=== PATIENT | male | born 1955 | race Caucasian/White ===

== ENCOUNTER 2016-08-27 11:33 | Inpatient (IN) | payer MEDICAID ==
--- NOTE | 2016-08-27 11:42 | EDPHY ---
H & P Time Seen by Provider: 08/27/16 11:42 HPI/ROS: CHIEF COMPLAINT: Coughing and short of breath HISTORY OF PRESENT ILLNESS: Long history of asthma and reactive airway disease. Currently tapering on prednisone down to 20 mg. Worsening over the last 3 days with nonproductive cough and worsening shortness of breath and difficulty with exertion. Worse lying flat or with exertion. Shortness of breath not associated with leg swelling but he is concerned that he might have broken a rib with left lateral chest pain today which is really only present on coughing REVIEW OF SYSTEMS: Eye: no change in vision ENT: no sore throat Cardiac: No syncope or palpitations Pulmonary: HPI. No hemoptysis. Abdomen: no vomiting, diarrhea, abdominal pain Musculoskeletal: no back pain Skin: no rash Neuro: no headache Constitutional: no fever : no urinary symptoms A comprehensive 10 point review of systems is otherwise negative aside from elements mentioned in the history of present illness. PAST MEDICAL HISTORY: Reactive airway disease, primary care at [facility]. Currently on 20 mg prednisone a day. Rib fractures and depression. Negative for CAD or PE/DVT Social history: Nonsmoker, homeless General Appearance: Alert and conversant, cooperative. Eyes: No scleral icterus. ENT, Mouth: Normal mucous membranes. Respiratory: Coughing, bilateral wheezing right greater than left, is able to speak in 5-6 word sentences. Cardiovascular: Regular rate and rhythm. Gastrointestinal: Abdomen is soft and non tender. Neurological: Alert and oriented x3. Normally conversant. Face symmetric, normal movement and sensation in all extremities. Skin: Diaphoretic Musculoskeletal: No peripheral edema and no joint swelling. No leg or calf tenderness. Psychiatric: Not agitated. Emergency Department course/MDM: On arrival: DuoNeb, continuous albuterol nebulizer, 60 mg oral prednisone. Chest x-ray viewed independently by myself shows stable left lower lung atelectasis otherwise negative. This was performed as outpatient under separate account. Radiology report reviewed at 1:57 p.m. shows new 8th rib fracture on the left. 1400: Patient informed of rib fracture, still wheezy, oxygen saturation 86%. 2 g magnesium IV, repeat continuous nebulizer. Flu test. 1446: 87% off nebulizer oxygen, still wheezy, plan for admission to hospital. 1554: percocet 1 po for cough. WBC noted elevated but similar to past, on steroids. I think this is not likely related to bacterial pulmonary infection. Smoking Status: Never smoked Constitutional: Initial Vital Signs Temperature (C) 36.6 C 08/27/16 11:36 Heart Rate 115 H 08/27/16 11:36 Respiratory Rate 16 08/27/16 11:36 Blood Pressure 165/100 H 08/27/16 11:36 O2 Sat (%) 91 L 08/27/16 11:36 O2 Delivery Mode Room Air Allergies/Adverse Reactions: erythromycin base Allergy (Verified 08/12/16 07:48) UPSET STOMACH Home Medications: Medication Instructions Recorded Albuterol [Proventil Inhaler HFA 2 puffs IH DAILY PRN 08/17/16 (*)] Albuterol [Proventil Neb] 3 ml IH QID PRN 08/17/16 Tiotropium Inhaler [Spiriva 18 mcg IH DAILY 08/17/16 Handihaler] buPROPion XL [Wellbutrin Xl] 300 mg PO DAILY 08/17/16 guaiFENesin/CODEINE PHOS 5 ml PO Q6 PRN #100 udcup 08/17/16 [Robitussin AC] Beclomethasone Qvar 80 [Qvar 80 1 puffs IH BIDI 08/27/16 (*)] Cetirizine [ZyrTEC 10 mg (*)] 10 mg PO DAILY 08/27/16 Citalopram Hydrobromide [Celexa] 40 mg PO DAILY 08/27/16 Gabapentin [Neurontin 300 MG (*)] 300 mg PO TID 08/27/16 Ipratropium [Atrovent Neb (*)] 0.5 mg IH Q8 PRN 08/27/16 Mometasone/Formoterol [Dulera 200 1 puffs IH BID 08/27/16 Mcg/5 Mcg Inhaler] Ranitidine HCl [Zantac] 300 mg PO BID 08/27/16 guaiFENesin [Mucinex 600 MG (*)] 600 mg PO BID 08/27/16 Medical Decision Making - Diagnostics Imaging: X-ray done as outpatient today reviewed by myself Differential Diagnosis: Differential diagnosis considered for shortness of breath including but not limited to pulmonary infectious process, COPD, asthma, pulmonary embolus and congestive heart failure. Consult/Admit Bed Type: [place] [id number] - Data Points Laboratory Results: Laboratory Results 08/27/16 11:55 08/27/16 11:55 08/27/16 08/27/16 11:55 11:47 WBC 16.03 H 10^3/uL (3.80-9.50) RBC 5.67 10^6/uL (4.40-6.38) Hgb 14.6 g/dL (13.7-17.5) Hct 45.4 % (40.0-51.0) MCV 80.1 L fL (81.5-99.8) MCH 25.7 L pg (27.9-34.1) MCHC 32.2 L g/dL (32.4-36.7) RDW 15.9 H % (11.5-15.2) Plt Count 271 10^3/uL (150-400) MPV 9.4 fL (8.7-11.7) Neut % (Auto) 77.0 H % (39.3-74.2) Lymph % (Auto) 12.4 L % (15.0-45.0) [place] % (Auto) 8.6 % (4.5-13.0) Eos % (Auto) 0.9 % (0.6-7.6) Baso % (Auto) 0.4 % (0.3-1.7) Nucleat RBC Rel Count 0.0 % (0.0-0.2) Absolute Neuts (auto) 12.33 H 10^3/uL (1.70-6.50) Absolute Lymphs (auto) 1.99 10^3/uL (1.00-3.00) Absolute Monos (auto) 1.38 H 10^3/uL (0.30-0.80) Absolute Eos (auto) 0.15 10^3/uL (0.03-0.40) Absolute Basos (auto) 0.06 10^3/uL (0.02-0.10) Absolute Nucleated RBC 0.00 10^3/uL (0-0.01) Immature Gran % 0.7 % (0.0-1.1) Immature Gran # 0.12 H 10^3/uL (0.00-0.10) Sodium 143 mEq/L (134-144) Potassium 4.4 mEq/L (3.5-5.2) Chloride 109 mEq/L (97-110) Carbon Dioxide 24 mEq/l (22-31) Anion Gap 10 mEq/L (8-16) BUN 16 mg/dL (7-23) Creatinine 1.0 mg/dL (0.7-1.3) Estimated GFR > 60 Glucose 99 mg/dL (70-100) Calcium 9.2 mg/dL (8.5-10.4) Influenza Typ A,B (DFA) NEGATIVE FOR FLU (NEGATIVE) Medications Given: Discontinued Medications Albuterol (Proventil Neb) 3 ml IH EDNOW ONE Stop: 08/27/16 11:44 Last Admin: 08/27/16 11:55 Dose: 3 ml Albuterol (Proventil Neb) 15 ml IH EDNOW ONE Stop: 08/27/16 12:08 Last Admin: 08/27/16 13:00 Dose: 15 ml Albuterol (Proventil Neb) 15 ml IH EDNOW ONE Stop: 08/27/16 14:00 Last Admin: 08/27/16 14:53 Dose: 15 ml Albuterol/Ipratropium (Duoneb) 3 ml IH EDNOW ONE Stop: 08/27/16 11:44 Last Admin: 08/27/16 11:56 Dose: 3 ml Magnesium Sulfate (Magnesium Sulf 2 Gm (Premix)) 50 mls @ 50 mls/hr IV EDNOW ONE Stop: 08/27/16 14:58 Last Admin: 08/27/16 15:33 Dose: 50 mls Sodium Chloride (Ns) 1,000 mls @ 0 mls/hr IV ONCE ONE PRN Reason: Wide Open Stop: 08/27/16 14:25 Last Admin: 08/27/16 15:33 Dose: 1,000 mls Oxycodone/Acetaminophen (Percocet 5/325) 1 tab PO EDNOW ONE Stop: 08/27/16 14:54 Last Admin: 08/27/16 15:19 Dose: 1 tab Prednisone (Prednisone) 60 mg PO EDNOW ONE Stop: 08/27/16 11:44 Last Admin: 08/27/16 11:55 Dose: 60 mg Departure - Departure Disposition: [facility] Acute Clinical Impression: Exacerbation of asthma Condition: Good
[2016-08-27] MEDS ORDERED: ALBUTEROL 3 ML DEYVIAL IH ONE ×3 (11:43→13:59)
[2016-08-27] MEDS ORDERED: predniSONE 20 MG TAB PO ONE (11:43)
[2016-08-27] MEDS ORDERED: IPRATROPIUM/ALBUTEROL 3 ML DEYVIAL IH ONE (11:43)
[2016-08-27] MEDS ORDERED: MAGNESIUM SULF 2 GM/WATER 50 ML IV ONE (13:59)
[2016-08-27] MEDS ORDERED: NS 1,000 ML IV ONE (14:24)
[2016-08-27] MEDS ORDERED: OXYCODONE/APAP 5/325 TAB PO ONE (14:53)
[2016-08-27 14:56] LABS: % IMMATURE GRANULYOCYTES 0.7 % (0.0-1.1); ABSOLUTE IMMATURE GRANULOCYTES 0.12 10^3/uL (0.00-0.10); ADD DIFF? NO; ADD MORPH? NO; ADD SCAN? NO; ATYPICAL LYMPHOCYTE FLAG 0 (0-99); FRAGMENT RBC FLAG 0 (0-99); HEMATOCRIT 45.4 % (40.0-51.0); HEMOGLOBIN 14.6 g/dL (13.7-17.5); LEFT SHIFT FLG 10 (0-99); LIPEMIA HEMOLYSIS FLAG 80 (0-99); MEAN CELL HEMOGLOBIN 25.7 pg (27.9-34.1); MEAN CELL HEMOGLOBIN CONCENTR. 32.2 g/dL (32.4-36.7); MEAN CELL VOLUME 80.1 fL (81.5-99.8); MEAN PLATELET VOLUME 9.4 fL (8.7-11.7); PLATELET CLUMPS FLAG 0 (0-99); PLATELET COUNT 271 10^3/uL (150-400); RED BLOOD CELL COUNT 5.67 10^6/uL (4.40-6.38); RED CELL DISTRIBUTION WIDTH 15.9 % (11.5-15.2)
[2016-08-27 15:13] LABS: ANION GAP 10 mEq/L (8-16); CALCIUM 9.2 mg/dL (8.5-10.4); CARBON DIOXIDE 24 mEq/l (22-31); CHLORIDE 109 mEq/L (97-110); GLOMERULAR FILTRATION RATE > 60; GLUCOSE 99 mg/dL (70-100); POTASSIUM 4.4 mEq/L (3.5-5.2); SODIUM 143 mEq/L (134-144)
[2016-08-27] MEDS ORDERED: ONDANSETRON DISINTEGRATING 4 MG TAB PO PRN (17:08)
[2016-08-27] MEDS ORDERED: ACETAMINOPHEN 325 MG TAB PO PRN (17:08)
[2016-08-27] MEDS ORDERED: ONDANSETRON 4 MG/2 ML VIAL IVP PRN (17:08)
[2016-08-27] MEDS: BECLOMETHASONE QVAR 80 MDI IH SCH ×2 (17:30→19:46)
[2016-08-27] MEDS: Mometasone/Formoterol [Dulera 200 Mcg/5 Mcg Inhaler] 1 PUFFS IH SCH (19:45)
--- NOTE | 2016-08-27 20:51 | GHP ---
[f rep st] HISTORY AND PHYSICAL DATE OF ADMISSION: 08/27/2016 CHIEF COMPLAINT: Shortness of breath. HISTORY OF PRESENT ILLNESS: This is a 60-year-old male who has been admitted twice in the last month for asthma exacerbation which seems to be more exacerbation of his underlying tracheomalacia. He do es go to [place] for that and there was a plan for some stenting, but no definitive date. This moody s always been complicated by the fact that he is homeless. He was last discharged on 08/15. At that point, he was given prednisone and Augmentin. He has had chest x-rays that have suggested left lower lobe infiltrate versus scarring. He states that since discharge he has been slowly getting worse. He says that this might be correlat ed with a decrease in the prednisone dose. He does feel a lot better while he is on prednisone. He feels like he is coughing, wheezing, and is unable to sleep. He is bringing up some yellow sputum. No fevers or chills. He has developed some left chest pain and he has been diagnosed with a new left 8th rib fracture. REVIEW OF SYSTEMS: A 10-point review of systems is a stated above and is otherwise negative. PAST MEDICAL HISTORY: 1. Tracheomalacia and tracheal stenosis, as above. 2. Asthma. 3. Depression. MEDICATIONS: Reviewed. SOCIAL HISTORY: No smoking. He is homeless and resides at a [facility]. FAMILY HISTORY: Positive for asthma. PHYSICAL EXAM: VITAL SIGNS: Afebrile. Blood pressure is 129/90, heart rate 110, oxygen saturation is 93% on room air. GENERAL: The patient is well-developed, in no apparent distress. HEENT: Nonic teric sclerae. Extraocular movements intact. Moist mucous membranes. NECK: Supple. No thyromegal y. LUNGS: Good effort. Coarse expiratory wheezes bilaterally. CARDIOVASCULAR: Regular rate and r hythm. No murmurs, gallops. ABDOMEN: Positive bowel sounds. Soft, nontender, nondistended. No he patosplenomegaly. EXTREMITIES: No clubbing, cyanosis, or edema. SKIN: Without rash. Warm, dry, i ntact. NEUROLOGIC: Alert and oriented x3. Moving all 4 extremities equally. PSYCH: Normal mood a nd affect. LABS: White count is elevated at 16, hemoglobin 14, platelets are 271. D-dimer is negative. Chemis tries normal. Flu is negative. Chest x-ray shows some scarring versus atelectasis left lower lobe and the new 8th rib fracture and s ome old rib fractures. ASSESSMENT: This is a 60-year-old male with a history of asthma and tracheomalacia and tracheal sten osis, presenting with worsening shortness of breath as his steroids have been tapered. PLAN: Asthma exacerbation/tracheal stenosis. We have restarted steroids at 60 mg daily. Will also continue nebulizer treatments. I do not think there is a lot of evidence that he may have worsening pneumonia and I am going hold off antibiotics. His white blood cell count is elevated, but this coul d be due to steroids. It is actually about the same as it was when he was discharged. Obviously, th e definitive treatment would be some type of procedure to help with his tracheomalacia and tracheal s tenosis. He will probably be discharged on higher-dose steroids until he is able to follow up. /[id number]/MODL
[2016-08-27] MEDS: guaiFENesin 600 MG TAB.ER PO SCH (21:21)
[2016-08-27] MEDS: GABAPENTIN 300 MG CAP PO SCH (21:21)
[2016-08-27] MEDS: FAMOTIDINE 20 MG TAB PO SCH (21:21)
[2016-08-27] MEDS: ALBUTEROL 3 ML DEYVIAL IH SCH (22:00)
[2016-08-28] MEDS: BECLOMETHASONE QVAR 80 MDI IH SCH ×2 (05:20→16:33)
[2016-08-28] MEDS: Mometasone/Formoterol [Dulera 200 Mcg/5 Mcg Inhaler] 1 PUFFS IH SCH ×2 (05:22→09:58)
[2016-08-28 05:31] LABS: % IMMATURE GRANULYOCYTES 0.9 % (0.0-1.1); ABSOLUTE IMMATURE GRANULOCYTES 0.14 10^3/uL (0.00-0.10); ADD DIFF? NO; ADD MORPH? NO; ADD SCAN? NO; ATYPICAL LYMPHOCYTE FLAG 0 (0-99); FRAGMENT RBC FLAG 0 (0-99); HEMATOCRIT 43.8 % (40.0-51.0); LEFT SHIFT FLG 10 (0-99); LIPEMIA HEMOLYSIS FLAG 80 (0-99); MEAN CELL HEMOGLOBIN 25.5 pg (27.9-34.1); MEAN CELL VOLUME 79.9 fL (81.5-99.8); MEAN PLATELET VOLUME 8.8 fL (8.7-11.7); PLATELET CLUMPS FLAG 0 (0-99); PLATELET COUNT 265 10^3/uL (150-400); RED BLOOD CELL COUNT 5.48 10^6/uL (4.40-6.38); RED CELL DISTRIBUTION WIDTH 15.9 % (11.5-15.2)
[2016-08-28] MEDS: ALBUTEROL 3 ML DEYVIAL IH SCH ×3 (05:50→19:08)
[2016-08-28 05:54] LABS: ALANINE AMINOTRANSFERASE 39 IU/L (21-72); ALBUMIN 3.8 g/dL (3.5-5.0); ALKALINE PHOSPHATASE 77 IU/L (38-126); ANION GAP 8 mEq/L (8-16); ASPARTATE AMINOTRANSFERASE 22 IU/L (17-59); BILIRUBIN,TOTAL 0.5 mg/dL (0.1-1.4); CALCIUM 8.7 mg/dL (8.5-10.4); CARBON DIOXIDE 28 mEq/l (22-31); CHLORIDE 107 mEq/L (97-110); CREATININE 0.8 mg/dL (0.7-1.3); GLOMERULAR FILTRATION RATE > 60; GLUCOSE 101 mg/dL (70-100); POTASSIUM 4.1 mEq/L (3.5-5.2); SODIUM 143 mEq/L (134-144); TOTAL PROTEIN 6.5 g/dL (6.3-8.2)
[2016-08-28] MEDS ORDERED: TIOTROPIUM INHALER 18 MCG/DOSE 5 DOSE/MDI IH SCH (09:00)
[2016-08-28] MEDS: GABAPENTIN 300 MG CAP PO SCH ×3 (09:45→21:15)
[2016-08-28] MEDS: ENOXAPARIN 40 MG/0.4 ML SYR SC SCH (09:45)
[2016-08-28] MEDS: CETIRIZINE 10 MG TAB PO SCH (09:46)
[2016-08-28] MEDS: CITALOPRAM 20 MG TAB PO SCH (09:46)
[2016-08-28] MEDS: predniSONE 20 MG TAB PO SCH (09:46)
[2016-08-28] MEDS: FAMOTIDINE 20 MG TAB PO SCH ×2 (09:46→21:15)
[2016-08-28] MEDS: buPROPion XL 150 MG TAB PO SCH (09:46)
[2016-08-28] MEDS: guaiFENesin 600 MG TAB.ER PO SCH ×2 (09:46→21:15)
--- NOTE | 2016-08-28 10:20 | HOSPPROG ---
Hospitalist Progress Note Assessment/Plan: ASSESSMENT/PLAN: # acute on chronic hypoxic respiratory failure - severe underlying lung disease (RAD/tracheomalacia) with acute rib fracture - will hold antibiotics for now # reactive airway disease exacerbation - increased dose of prednisone, cont nebulizers - Dulera, Spiriva as outpt # tracheomalacia/stenosis - needs definitive procedure at [facility] # new left 8th rib fracture - pain control - IS, flutter valve # leukocytosis # lovenox # full code SUBJECTIVE: Feels somewhat better today overall OBJECTIVE: Vitals reviewed Comfortable, no acute distress Regular rate and rhythm, no murmurs rubs or gallops No respiratory distress, lungs clear to auscultation bilaterally; no wheezes rales or rhonchi Abdomen with normal bowel sounds, soft, nontender, nondistended LABORATORY DATA: Elevated white blood cell count IMAGING: Chest x-ray personally reviewed, new left-sided rib fracture otherwise no significant changes MICROBIOLOGY: None Objective: Vital Signs Temp Pulse Resp BP Pulse Ox 36.7 C 102 H 18 148/83 H 92 08/28/16 07:27 08/28/16 07:27 08/28/16 07:27 08/28/16 07:27 08/28/16 07:27 Laboratory Results 08/28/16 05:08 08/28/16 05:08 08/27/16 08/28/16 08/29/16 05:59 05:59 05:59 Intake Total 2640 Output Total 150 Balance 2490 ICD10 Worksheet Patient Problems: Problems Problem Status Diagnosed Chronic obstructive pulmonary disease with acute exacerbation Acute Exacerbation of asthma Acute
[2016-08-28] MEDS: OXYCODONE/APAP 5/325 TAB PO PRN ×2 (10:32→21:20)
[2016-08-28] MEDS: IPRATROPIUM/ALBUTEROL 3 ML DEYVIAL IH SCH ×3 (11:11→22:32)
[2016-08-28] MEDS: guaiFENesin/CODEINE PHOS 10 ML UDCUP PO PRN (23:58)
[2016-08-29] MEDS: ALBUTEROL 3 ML DEYVIAL IH PRN (01:31)
[2016-08-29] MEDS: IPRATROPIUM/ALBUTEROL 3 ML DEYVIAL IH SCH ×4 (05:45→19:31)
[2016-08-29] MEDS: BECLOMETHASONE QVAR 80 MDI IH SCH ×2 (05:48→19:33)
[2016-08-29] MEDS: OXYCODONE/APAP 5/325 TAB PO PRN ×2 (09:33→21:25)
[2016-08-29] MEDS: ENOXAPARIN 40 MG/0.4 ML SYR SC SCH (10:31)
[2016-08-29] MEDS: predniSONE 20 MG TAB PO SCH (10:34)
[2016-08-29] MEDS: GABAPENTIN 300 MG CAP PO SCH ×3 (10:34→21:24)
[2016-08-29] MEDS: buPROPion XL 150 MG TAB PO SCH (10:35)
[2016-08-29] MEDS: FAMOTIDINE 20 MG TAB PO SCH ×2 (10:35→21:24)
[2016-08-29] MEDS: CETIRIZINE 10 MG TAB PO SCH (10:36)
[2016-08-29] MEDS: guaiFENesin 600 MG TAB.ER PO SCH ×2 (10:36→21:24)
[2016-08-29] MEDS: CITALOPRAM 20 MG TAB PO SCH (10:36)
--- NOTE | 2016-08-29 13:35 | HOSPPROG ---
Hospitalist Progress Note Assessment/Plan: ASSESSMENT/PLAN: # acute on chronic hypoxic respiratory failure - severe underlying lung disease (RAD/tracheomalacia) with acute rib fracture - will hold antibiotics for now - approaching baseline but not the area at # reactive airway disease exacerbation - increased dose of prednisone, cont nebulizers - Dulera, Spiriva as outpt # tracheomalacia/stenosis - needs definitive stenting procedure at [facility] # new left 8th rib fracture - pain control - IS, flutter valve # leukocytosis # lovenox # full code # mod risk SUBJECTIVE: slightly worse than yesterday OBJECTIVE: Vitals reviewed Comfortable, no acute distress Regular rate and rhythm, no murmurs rubs or gallops mild respiratory distress, lungs clear to auscultation bilaterally; no wheezes rales or rhonchi Abdomen with normal bowel sounds, soft, nontender, nondistended LABORATORY DATA: none new today IMAGING: no new MICROBIOLOGY: None Objective: Vital Signs Temp Pulse Resp BP Pulse Ox 36.8 C 100 16 131/90 H 94 08/29/16 11:09 08/29/16 11:09 08/29/16 11:09 08/29/16 11:09 08/29/16 11:09 Laboratory Results 08/28/16 05:08 08/28/16 05:08 08/28/16 08/29/16 08/30/16 05:59 05:59 05:59 Intake Total 2640 Output Total 150 Balance 2490 ICD10 Worksheet Patient Problems: Problems Problem Status Diagnosed Chronic obstructive pulmonary disease with acute exacerbation Acute Exacerbation of asthma Acute
[2016-08-29] MEDS: guaiFENesin/CODEINE PHOS 10 ML UDCUP PO PRN (21:24)
[2016-08-30] MEDS: IPRATROPIUM/ALBUTEROL 3 ML DEYVIAL IH SCH ×4 (05:21→21:15)
[2016-08-30] MEDS: BECLOMETHASONE QVAR 80 MDI IH SCH ×2 (05:30→18:01)
[2016-08-30] MEDS: predniSONE 20 MG TAB PO SCH (10:34)
[2016-08-30] MEDS: FAMOTIDINE 20 MG TAB PO SCH ×2 (10:34→20:42)
[2016-08-30] MEDS: CETIRIZINE 10 MG TAB PO SCH (10:34)
[2016-08-30] MEDS: buPROPion XL 150 MG TAB PO SCH (10:35)
[2016-08-30] MEDS: GABAPENTIN 300 MG CAP PO SCH ×3 (10:35→20:42)
[2016-08-30] MEDS: CITALOPRAM 20 MG TAB PO SCH (10:35)
[2016-08-30] MEDS: ENOXAPARIN 40 MG/0.4 ML SYR SC SCH (10:36)
[2016-08-30] MEDS: guaiFENesin 600 MG TAB.ER PO SCH ×2 (10:36→20:42)
--- NOTE | 2016-08-30 12:14 | HOSPPROG ---
Hospitalist Progress Note Assessment/Plan: ASSESSMENT/PLAN: # acute on chronic hypoxic respiratory failure - severe underlying lung disease (RAD/tracheomalacia) with acute rib fracture - cont to hold antibiotics - approaching baseline but not the area at # LE edema - suspect pulm htn - lasix IV, check echo # reactive airway disease exacerbation - increased dose of prednisone, cont nebulizers - Dulera, Spiriva as outpt # tracheomalacia/stenosis - needs definitive stenting procedure at [facility] # new left 8th rib fracture - pain control - IS, flutter valve # leukocytosis # lovenox # full code # mod risk SUBJECTIVE: ankles are today swollen today; breathing still feels labored OBJECTIVE: Vitals reviewed Comfortable, no acute distress Regular rate and rhythm, no murmurs rubs or gallops mild respiratory distress, lungs clear to auscultation bilaterally; no wheezes rales or rhonchi Abdomen with normal bowel sounds, soft, nontender, nondistended 2+ bilat LE edema LABORATORY DATA: none new today Objective: Vital Signs Temp Pulse Resp BP Pulse Ox 37.0 C 92 16 142/87 H 90 L 08/30/16 08:00 08/30/16 08:00 08/30/16 08:00 08/30/16 08:00 08/30/16 08:00 Laboratory Results 08/28/16 05:08 08/28/16 05:08 08/29/16 08/30/16 08/31/16 05:59 05:59 05:59 Intake Total 1500 1200 Balance 1500 1200 ICD10 Worksheet Patient Problems: Problems Problem Status Diagnosed Chronic obstructive pulmonary disease with acute exacerbation Acute Exacerbation of asthma Acute
[2016-08-30] MEDS: OXYCODONE/APAP 5/325 TAB PO PRN ×2 (12:23→20:42)
[2016-08-30] MEDS: guaiFENesin/CODEINE PHOS 10 ML UDCUP PO PRN ×2 (14:30→20:42)
[2016-08-30] MEDS: FUROSEMIDE 20 MG/2 ML VIAL IVP SCH ×2 (14:31→17:05)
[2016-08-30] MEDS: ALBUTEROL 3 ML DEYVIAL IH PRN (14:40)
--- NOTE | 2016-08-30 15:41 | ECHO ---
[id number] + + [address] : : [place] [address] : : [phone] + + Adult Echocardiographic Report + -+ :Name: DAWSON MITTAL HStudy Date: 08/30/2016 01:55 PM : : Hospital Admission Number: [id number] : :: 1955 Gender: Male Height: 63 in : :Age: 60 yrs Race: WH Weight: 191 lb : :Reason For Study: LE edema : : BSA: 1.9 meters 2: :History: LE edema : + -+ MMode/2D Measurements & Calculations IVSd: 1.0 cm RVDd: 3.2 cm FS: 28.4 % Ao root diam: 3.0 cm LVPWd: 0.98 cm LVIDd: 5.0 cm EDV(Teich): 116.8 ml LVIDs: 3.6 cm ESV(Teich): 53.0 ml EF(Teich): 54.6 % Normal Measurement Values: + + :LVIDd (3.5-5.7cm) IVSd (0.6-1.1cm) LVPWd (0.6-1.1cm) Aortic Root (2.0-3.7cm)Left Atrium (1.5-4.0cm): :LV Vol(d) (76-115ml) LV Vol(s) (29-48ml) Ejec Fraction (50-65%)PV Lobo (0.6- 1.2m/s) TV Lobo (0.4-1.0m/s) : :MV E Lobo (0.8-1.0m/s)MV A Lobo (0.3-1.0m/s)LVOT Lobo (0.7-1.2m/s) Asc Ao Lobo ( 0.9-1.8m/s) : + + Doppler Measurements & Calculations MV E max lobo: Ao V2 max: LV V1 max: PA V2 max: 77.0 cm/sec 133.8 cm/sec 94.8 cm/sec 107.2 cm/sec MV A max lobo: Ao max P.2 mmHgLV V1 max PG: PA max P.6 mmHg 53.8 cm/sec 3.6 mmHg MV E/A: 1.4 MV dec time: 0.11 sec Left Ventricle The left ventricle is normal in size and function. There is normal left ventricular wall thickness. Ejection Fraction = 55-60%. Diastolic function is normal. E/e' 7.8. Regional wall motion abnormalities cannot be excluded due to limited visualization. Right Ventricle The right ventricle is normal in size and function. Atria The left atrial size is normal. Right atrial size is normal. The interatrial septum is intact with no evidence for an atrial septal defect. Mitral Valve The mitral valve is normal in structure and function. There is no evidence of mitral valve prolapse. There is no mitral valve stenosis. There is no mitral regurgitation noted. Tricuspid Valve The tricuspid valve is normal in structure and function. There is no tricuspid stenosis. No tricuspid regurgitation. Aortic Valve Most likely trileaflet aortic valve however not well visualized. There is no aortic stenosis. There is no aortic insufficiency. Pulmonic Valve The pulmonic valve is not well visualized. Great Vessels The aortic root is normal size. Pericardium/Pleural There is no pericardial effusion. Conclusion A two-dimensional transthoracic echocardiogram with M-mode and Doppler was performed. The study was technically difficult. The left ventricle is normal in size and function. Ejection Fraction = 55-60%. Most likely trileaflet aortic valve however not well visualized. Diastolic function is normal. E/e' 7.8 The right ventricle is normal in size and function. The left atrial size is normal. Right atrial size is normal. The interatrial septum is intact with no evidence for an atrial septal defect. The mitral valve is normal in structure and function. Final Reading Physician: Donovan Lucas electronically signed on 08/30/2016 03:40 PM Ordering Physician: Donte Kirkpatrick Performed By: Silvina Pickens
[2016-08-31] MEDS: IPRATROPIUM/ALBUTEROL 3 ML DEYVIAL IH SCH ×2 (05:05→13:12)
[2016-08-31] MEDS: BECLOMETHASONE QVAR 80 MDI IH SCH (05:06)
[2016-08-31 06:22] LABS: ANION GAP 10 mEq/L (8-16); CARBON DIOXIDE 28 mEq/l (22-31); CHLORIDE 107 mEq/L (97-110); CREATININE 0.9 mg/dL (0.7-1.3); GLOMERULAR FILTRATION RATE > 60; GLUCOSE 107 mg/dL (70-100); POTASSIUM 3.6 mEq/L (3.5-5.2); SODIUM 145 mEq/L (134-144)
[2016-08-31] MEDS: ALBUTEROL 3 ML DEYVIAL IH PRN (08:42)
[2016-08-31] MEDS: CETIRIZINE 10 MG TAB PO SCH (09:48)
[2016-08-31] MEDS: FAMOTIDINE 20 MG TAB PO SCH (09:49)
[2016-08-31] MEDS: GABAPENTIN 300 MG CAP PO SCH (09:49)
[2016-08-31] MEDS: buPROPion XL 150 MG TAB PO SCH (09:49)
[2016-08-31] MEDS: CITALOPRAM 20 MG TAB PO SCH (09:49)
[2016-08-31] MEDS: predniSONE 20 MG TAB PO SCH (09:49)
[2016-08-31] MEDS: guaiFENesin 600 MG TAB.ER PO SCH (09:49)
[2016-08-31] MEDS: ENOXAPARIN 40 MG/0.4 ML SYR SC SCH (09:50)
[2016-08-31] MEDS: OXYCODONE/APAP 5/325 TAB PO PRN (10:26)
[2016-08-31] MEDS: FUROSEMIDE 20 MG/2 ML VIAL IVP SCH (10:26)
[2016-08-31 12:06] VITALS: BP 139/98; RESP 16; TEMP 97.8
--- NOTE | 2016-08-31 12:36 | GDS ---
[f rep st] DISCHARGE SUMMARY ALL DIAGNOSES: 1. Acute on chronic respiratory failure. 2. History of tracheomalacia and stenosis. 3. Lower extremity edema. 4. Reactive airways disease exacerbation. 5. Acute 8th rib fracture, left-sided. HOSPITAL COURSE: A 60-year-old man with known tracheomalacia and stenosis, presented with shortness of breath. He was recently admitted here for the same. He was diagnosed with prednisone. When he w as decreasing his prednisone dose, his symptoms became worse. He was started on 60 mg of prednisone. He was also given inhalers. Respiratory status has improved. He was noted to have a left-sided rib fracture. This is an 8th rib fracture. Been treated with pain control for this. He is still able to cough and clear his secretions. Will discharge him with a ort course of pain control for this. I have given him a long taper of prednisone starting at 60 mg daily. He has a prescription for this. He complained of some lower extremity edema. Echocardiogram is relatively normal, actually without p ulmonary hypertension. Diuresed with IV Lasix, transition to oral Lasix for now. For his tracheal stenosis and tracheomalacia, he has close followup with [facility]. They plan to stent him however, the exact timing of this is unclear. I wrote him a note to excuse him from duties while he is at his [facility] [place] [facility] for approximately 2 weeks. BILLING: I spent more than 30 minutes on the day of discharge coordinating care. /[id number]/MODL
[2016-08-31 13:20] VITALS: PULSE 90; O2SAT 91
== END 2016-08-31 14:21 | disposition home or self-care (01) | DRG 202 ==
LOC: F3E 15:43
PROVIDERS: ADMIT Internal Medicine; ATTEND Student in an Organized Health Care Education/Training Program
DX: J45.901 Unspecified asthma with (acute) exacerbation (principal); J96.21 Acute and chronic respiratory failure with hypoxia; J39.8 Other specified diseases of upper respiratory tract; S22.32XA Fracture of one rib, left side, initial encounter for closed fracture; R60.9 Edema, unspecified; X50.9XXA Other and unspecified overexertion or strenuous movements or postures, initial encounter; Z59.0 Homelessness
CPT/HCPCS: 96365; J1650

== ENCOUNTER → 2016-08-27 | Outpatient (CLI) | payer MEDICAID ==
--- NOTE | 2016-08-27 13:02 | DX ---
PA and Lateral Chest August 27, 2016 Indication: Cough for one year. Comparison: Two-view chest dated August 12, 2016 Findings: A new nondisplaced low left 8th rib fracture is evident on the PA view. Hypoventilation, di ffuse moderate peribronchial thickening, left basilar atelectasis versus scarring, and an old healed deformed left lateral 6, 7 and 8th rib fractures are unchanged since August 12, 2016. Impression: 1. New nondisplaced left 8th rib fracture. 2. Left basilar atelectasis versus scarring with associated old deformed low left rib fractures are u nchanged. 3. No new edema, consolidation or mass.
== END ==
LOC: FIMAGING 10:52
PROVIDERS: ATTEND Radiology Diagnostic Radiology
DX: S22.32XA Fracture of one rib, left side, initial encounter for closed fracture (principal); R05 Cough

== ENCOUNTER 2016-09-02 06:41 | Inpatient (IN) | payer MEDICAID ==
[2016-09-02] MEDS ORDERED: IPRATROPIUM/ALBUTEROL 3 ML DEYVIAL IH ONE (07:11)
--- NOTE | 2016-09-02 07:20 | CPEKG ---
Heart Rate: 84 RR Interval: 714 P-R Interval: 168 QRSD Interval: 90 QT Interval: 372 QTC Interval: 440 P [place]: 47 QRS [place]: 6 T Wave [place]: 22 EKG Severity - NORMAL ECG - EKG Impression: SINUS RHYTHM Electronically Signed By: Carol Arnold 02-Sep-2016 07:51:51
[2016-09-02 07:33] LABS: % IMMATURE GRANULYOCYTES 0.8 % (0.0-1.1); ABSOLUTE IMMATURE GRANULOCYTES 0.13 10^3/uL (0.00-0.10); ADD DIFF? NO; ADD MORPH? NO; ADD SCAN? NO; ATYPICAL LYMPHOCYTE FLAG 0 (0-99); FRAGMENT RBC FLAG 0 (0-99); HEMATOCRIT 39.2 % (40.0-51.0); HEMOGLOBIN 12.8 g/dL (13.7-17.5); LEFT SHIFT FLG 10 (0-99); LIPEMIA HEMOLYSIS FLAG 80 (0-99); MEAN CELL HEMOGLOBIN CONCENTR. 32.7 g/dL (32.4-36.7); MEAN CELL VOLUME 79.7 fL (81.5-99.8); MEAN PLATELET VOLUME 8.9 fL (8.7-11.7); PLATELET CLUMPS FLAG 0 (0-99); PLATELET COUNT 244 10^3/uL (150-400); RED BLOOD CELL COUNT 4.92 10^6/uL (4.40-6.38); RED CELL DISTRIBUTION WIDTH 15.6 % (11.5-15.2)
[2016-09-02 07:47] LABS: ANION GAP 8 mEq/L (8-16); CALCIUM 8.7 mg/dL (8.5-10.4); CARBON DIOXIDE 27 mEq/l (22-31); CHLORIDE 108 mEq/L (97-110); CREATININE 0.9 mg/dL (0.7-1.3); GLOMERULAR FILTRATION RATE > 60; GLUCOSE 74 mg/dL (70-100); POTASSIUM 3.7 mEq/L (3.5-5.2); SODIUM 143 mEq/L (134-144)
[2016-09-02] MEDS ORDERED: ALBUTEROL 3 ML DEYVIAL IH ONE (08:50)
[2016-09-02] MEDS ORDERED: predniSONE 20 MG TAB PO ONE (08:50)
--- NOTE | 2016-09-02 09:06 | DX ---
AP Upright and Lateral Chest History: Shortness of breath and chronic cough in a 60-year-old male; comparison prior studies 2016 and August 12, 2016. Findings: There is a slight increase in displacement of the subacute left 8th rib fracture. Other hea led left rib fractures are stable in appearance. Hypoventilatory changes are noted. There is mild inc rease in left basilar opacity which is probably progressive atelectasis. There is also peribronchial thickening and mild hyperexpansion suggesting COPD/chronic bronchitis. The heart size and pulmonary vascularity are normal. No pleural effusions are seen. Impression: 1. Increased left basilar atelectasis. 2. Airways disease probably representing COPD/chronic bronchitis. 3. Slight increase in displacement of the left 8th rib fracture.
[2016-09-02] MEDS ORDERED: LETS SOLN TOPICAL 1 EA SYR TP ONE (09:37)
[2016-09-02] MEDS ORDERED: ACETAMINOPHEN 325 MG TAB PO PRN (11:06)
[2016-09-02] MEDS ORDERED: ZOLPIDEM TARTRATE 5 MG TAB PO PRN (11:06)
[2016-09-02] MEDS ORDERED: ONDANSETRON 4 MG/2 ML VIAL IVP PRN (11:06)
[2016-09-02] MEDS ORDERED: PROMETHAZINE HCL 25 MG/ML VIAL IVP PRN (11:06)
[2016-09-02] MEDS ORDERED: ONDANSETRON DISINTEGRATING 4 MG TAB PO PRN (11:06)
[2016-09-02] MEDS ORDERED: oxyCODONE IR 5 MG TAB PO PRN (11:06)
[2016-09-02] MEDS ORDERED: ALBUTEROL 60 PUFFS/8 GM MDI IH PRN (11:09)
[2016-09-02] MEDS: methylPREDNISolone SOD SUCC 125 MG/2 ML VIAL IVP SCH ×2 (12:15→17:28)
[2016-09-02] MEDS: IPRATROPIUM/ALBUTEROL 3 ML DEYVIAL IH SCH ×3 (12:30→21:10)
[2016-09-02] MEDS: ACETYLCYSTEINE 10% 30 ML VIAL IH SCH ×2 (12:30→16:57)
[2016-09-02] MEDS: GABAPENTIN 300 MG CAP PO SCH ×2 (16:24→21:41)
[2016-09-02] MEDS ORDERED: CITALOPRAM 20 MG TAB PO ONE (16:30)
--- NOTE | 2016-09-02 16:54 | GHP ---
[f rep st] HISTORY AND PHYSICAL DATE OF ADMISSION: 09/02/2016 CHIEF COMPLAINT: Shortness of breath. HISTORY: This is a 60-year-old man who has a past medical history of reactive airways disease, as well as tracheomalacia and stenosis, just recently discharged from this hospital on 08/31/2016. He comes back stating he is still very short of breath. He notes that he did not feel quite ready to go home when he was discharged. He states that he continued to cough and wheeze, and continued to have thick, yellowish-green sputum production. He has scheduled followup at [facility] for his tracheomalacia with a plan to have stenting performed. He is homeless and this definitely complicates his discharge. He, otherwise, has no active complaints including no fevers or chills. No nausea, vomiting. No urinary complaints. PAST MEDICAL HISTORY: 1. Reactive airways disease. 2. Tracheomalacia and tracheal stenosis. 3. Depression. 4. Chronic pain. SOCIAL HISTORY: The patient is a nonsmoker. He is homeless, resides at a homeless prison. He is not close with his family. FAMILY HISTORY: Multiple family members with asthma. MEDICATIONS: 1. Prednisone. 2. Oxycodone. 3. Guaifenesin. 4. Wellbutrin. 5. Spiriva. 6. Ranitidine. 7. Dulera. 8. Ipratropium nebs. 9. Gabapentin. 10. Lasix. 11. Celexa. 12. Cetirizine. 13. Qvar. 14. Albuterol. ALLERGIES: Erythromycin. PHYSICAL EXAMINATION: VITAL SIGNS: BP 138/91, heart rate 88, respiratory rate 20, O2 saturation 94% on 1 L. GENERAL APPEARANCE: This is a well-developed/ well-nourished, slightly overweight man. He is awake and alert. He is in no acute distress. EYES: Anicteric. HEENT: Oropharynx clear. CARDIOVASCULAR: RRR, no MRG. PULMONARY: Diffuse rhonchi bilaterally with wet productive cough. No increased work of breathing. ABDOMEN: Soft, nontender, nondistended. EXTREMITIES: Trace bilateral lower extremity edema. SKIN: Warm , dry, well-perfused. NEURO/PSYCHIATRIC: Oriented appropriate, pleasant. CLINICAL DATA: Labs reviewed. Notable for a white blood cell count of 6.7, hematocrit of 39.2, platelets of 244. Chemistries unremarkable. Chest x-ray, reviewed and interpreted independently by myself showing left basilar atelectasis and airways disease. EKG reviewed and interpreted independently by myself showing sinus rhythm with a rate of 84, no ischemic changes. ASSESSMENT/PLAN: A 60-year-old man with past medical history of reactive airways disease and tracheomalacia, who presents with worsening shortness of breath in the setting of acute reactive airways disease exacerbation. PROBLEM LIST: 1. Reactive airways disease with acute exacerbation: The patient does seem to have fairly refractory symptoms at this point. This is his 3rd hospitalization in the last month. Unclear how this relates to his known history of tracheomalacia. He does not have evidence of pneumonia on imaging. Plan: Will be for scheduled nebs. Will increase his steroid doses. He was still on 60 mg of prednisone daily at the time of admission. Will increase to 60 three times daily Solu-Medrol. We will continue to monitor with the current management. 2. History of tracheomalacia and tracheal stenosis for which he has plans to undergo stenting at [facility] per his report: We will attempt to obtain records from [facility] for further information. If there has not been recent CT scan performed there, we may need to consider repeating that here. 3. Leukocytosis: This has been persistently elevated for the last month or so , likely related to chronic steroid use. We will continue to trend while in- house. 4. Homelessness contributing to his recurrent hospitalizations: Case management involved. 5. Disposition: Observation status. Patient may require less than 48 hours stay for evaluation and management of above if he is able to improve with some nebulizer therapies. Patient is new to my care. Old records reviewed and summarized as per HPI and past medical history. Care plan reviewed with the ER physician, including plans for nebs. /[id number]/MODL MTDD
--- NOTE | 2016-09-02 17:02 | EDPHY ---
H & P Stated Complaint: syncope Time Seen by Provider: 09/02/16 06:55 HPI/ROS: CHIEF COMPLAINT: Trouble breathing HISTORY OF PRESENT ILLNESS: This is a 60-year-old male with a history of reactive airway disease and tracheal malacia. He has had 2 recent admissions for shortness of breath, the last 1 being on August 27 of this year. He presents today by ambulance stating the area syncopal episode this morning. He is living in the homeless long-term, woke, can get out of bed but had a hacking coughing fit and passed out. He did not fall or injure himself with this event. He continues to feel short of breath. He has a persistent chronic cough that is not productive. He has not had fever or chills. He is not experiencing chest pain. He is on prednisone and states that he is compliant with all of his medications. He is known to have a left 8th rib fracture. REVIEW OF SYSTEMS: A ten point review of systems was performed and is negative with the exception of the items mentioned in the HPI. Source: Patient Exam Limitations: No limitations - Personal History Current Tetanus/Diphtheria Vaccine: Yes Current Tetanus Diphtheria and Acellular Pertussis (TDAP): Yes Tetanus Vaccine Date: 2012 - Medical/Surgical History Hx Asthma: Yes Hx Chronic Respiratory Disease: No Hx Diabetes: No Hx Cardiac Disease: No Hx Renal Disease: No Hx Cirrhosis: No Hx Alcoholism: No Hx HIV/AIDS: No Hx Splenectomy or Spleen Trauma: No Other PMH: 1. Tracheomalacia and tracheal stenosis. 2. Asthma. 3. Depression - Social History Smoking Status: Never smoked Alcohol Use: None Drug Use: None Additional Social History: He is homeless, residing at the homeless long-term. - Physical Exam Exam: General Appearance: Alert. Vital signs reviewed. Oxygen saturation 92% on room air, blood pressure 149/94, respiratory rate 18, heart rate 84, temperature 37. Eyes: Pupils equal and round, no conjunctival injection, no discharge. Anicteric. ENT, Mouth: Mucous membranes are moist, no oropharyngeal erythema or edema. Neck: No lymphadenopathy, supple. Trachea midline. Respiratory: Diffuse bilateral wheezes. Cardiovascular: Regular rate and rhythm; no murmur, rub, or gallop. Gastrointestinal: Abdomen is soft and nontender, no masses or organomegaly, bowel sounds normal. Skin: Warm and dry, no rashes on exposed skin, normal color. Back: Nontender to palpation over the thoracolumbar spine. Extremities: No lower extremity edema, no calf tenderness or swelling. Neurological: Alert and oriented. Moving all four extremities easily and equally. Psychiatric: Normal affect. Constitutional: Initial Vital Signs Temperature (C) 37.0 C 09/02/16 06:52 Heart Rate 84 09/02/16 06:52 Respiratory Rate 18 09/02/16 06:52 Blood Pressure 149/94 H 09/02/16 06:52 O2 Sat (%) 92 09/02/16 06:52 O2 Delivery Mode Nasal Cannula O2 (L/minute) 2 Allergies/Adverse Reactions: erythromycin base Allergy (Verified 08/12/16 07:48) UPSET STOMACH Home Medications: Medication Instructions Recorded Albuterol [Proventil Inhaler HFA 2 puffs IH DAILY PRN 08/17/16 (*)] Albuterol [Proventil Neb] 3 ml IH QID PRN 08/17/16 Tiotropium Inhaler [Spiriva 18 mcg IH DAILY 08/17/16 Handihaler] buPROPion XL [Wellbutrin 150mg XL] 300 mg PO DAILY 08/17/16 Beclomethasone Qvar 80 [Qvar 80 1 puffs IH BID 08/27/16 (*)] Cetirizine [ZyrTEC 10 mg (*)] 10 mg PO DAILY 08/27/16 Citalopram Hydrobromide [Celexa] 40 mg PO DAILY 08/27/16 Gabapentin [Neurontin 300 MG (*)] 300 mg PO TID 08/27/16 Ipratropium [Atrovent Neb (*)] 0.5 mg IH Q8 PRN 08/27/16 Mometasone/Formoterol [Dulera 200 1 puffs IH BID 08/27/16 Mcg/5 Mcg Inhaler] Ranitidine HCl [Zantac] 300 mg PO BID 08/27/16 guaiFENesin [Mucinex 600 MG (*)] 600 mg PO BID 08/27/16 oxyCODONE/APAP 5/325 [Percocet 1 tab PO Q4HRS PRN #14 tab 08/31/16 5/325 (*)] Furosemide [Lasix 20 MG (*)] 20 mg PO BID 09/02/16 predniSONE 60 mg PO DAILY 09/02/16 Medical Decision Making - Diagnostics Imaging: Two-view chest x-ray shows worsening left basilar atelectasis. There is a left 8th rib fracture. I have reviewed the x-ray. ED Course/Re-evaluation: He received an albuterol in a DuoNeb shortly after arrival. He was given prednisone 60 mg p.o.. Chest x-ray reviewed. No infiltrate. He is not febrile. I do not suspect an infectious process at this point in time. He is not experiencing chest pain and I do not suspect an acute coronary syndrome or PE. He does have a left 8th rib fracture and it would not surprise me if he had pain at that site. With the above measures he remained with diffuse wheezing and subjective dyspnea. He is being admitted to the hospitalist service with an asthma exacerbation. I suspect that his tracheomalacia and tracheal stenosis is contributing to his presentation. This has been a recurring same with several recent admissions. Differential Diagnosis: I considered a differential diagnosis of shortness of breath including but not limited to tracheomalacia/tracheal stenosis, pulmonary infectious process, COPD , asthma, pulmonary embolus and congestive heart failure. - Data Points Laboratory Results: Laboratory Results 09/02/16 07:24 09/02/16 07:24 09/02/16 07:24 WBC 16.73 H 10^3/uL (3.80-9.50) RBC 4.92 10^6/uL (4.40-6.38) Hgb 12.8 L g/dL (13.7-17.5) Hct 39.2 L % (40.0-51.0) MCV 79.7 L fL (81.5-99.8) MCH 26.0 L pg (27.9-34.1) MCHC 32.7 g/dL (32.4-36.7) RDW 15.6 H % (11.5-15.2) Plt Count 244 10^3/uL (150-400) MPV 8.9 fL (8.7-11.7) Neut % (Auto) 78.3 H % (39.3-74.2) Lymph % (Auto) 13.1 L % (15.0-45.0) [place] % (Auto) 7.3 % (4.5-13.0) Eos % (Auto) 0.3 L % (0.6-7.6) Baso % (Auto) 0.2 L % (0.3-1.7) Nucleat RBC Rel Count 0.0 % (0.0-0.2) Absolute Neuts (auto) 13.11 H 10^3/uL (1.70-6.50) Absolute Lymphs (auto) 2.19 10^3/uL (1.00-3.00) Absolute Monos (auto) 1.22 H 10^3/uL (0.30-0.80) Absolute Eos (auto) 0.05 10^3/uL (0.03-0.40) Absolute Basos (auto) 0.03 10^3/uL (0.02-0.10) Absolute Nucleated RBC 0.00 10^3/uL (0-0.01) Immature Gran % 0.8 % (0.0-1.1) Immature Gran # 0.13 H 10^3/uL (0.00-0.10) Sodium 143 mEq/L (134-144) Potassium 3.7 mEq/L (3.5-5.2) Chloride 108 mEq/L (97-110) Carbon Dioxide 27 mEq/l (22-31) Anion Gap 8 mEq/L (8-16) BUN 16 mg/dL (7-23) Creatinine 0.9 mg/dL (0.7-1.3) Estimated GFR > 60 Glucose 74 mg/dL (70-100) Calcium 8.7 mg/dL (8.5-10.4) Medications Given: Discontinued Medications Albuterol (Proventil Neb) 3 ml IH EDNOW ONE Stop: 09/02/16 08:51 Last Admin: 09/02/16 09:15 Dose: 3 ml Albuterol/Ipratropium (Duoneb) 3 ml IH EDNOW ONE Stop: 09/02/16 07:12 Last Admin: 09/02/16 07:15 Dose: 3 ml Prednisone (Prednisone) 60 mg PO EDNOW ONE Stop: 09/02/16 08:51 Last Admin: 09/02/16 09:19 Dose: 60 mg Tetracaine/Epinephrine/Lidocaine (Lets Soln Topical) 1 ea TP EDNOW ONE Stop: 09/02/16 09:38 Last Admin: 09/02/16 09:42 Dose: 1 ea Departure - Departure Disposition: [facility] Inpatient Acute Clinical Impression: Exacerbation of asthma Condition: Good
[2016-09-02] MEDS ORDERED: NON-FORMULARY NEW DRUG (Ranitidine Hcl [Zantac] 300 MG) PO SCH (21:00)
[2016-09-02] MEDS: guaiFENesin 600 MG TAB.ER PO SCH (21:41)
[2016-09-02] MEDS: FUROSEMIDE 20 MG TAB PO SCH (21:41)
[2016-09-02] MEDS: FAMOTIDINE 20 MG TAB PO SCH (21:41)
[2016-09-02] MEDS: OXYCODONE/APAP 5/325 TAB PO PRN (21:51)
[2016-09-02] MEDS: BECLOMETHASONE QVAR 80 MDI IH SCH (21:52)
[2016-09-03] MEDS: ACETYLCYSTEINE 10% 30 ML VIAL IH SCH ×5 (00:25→19:56)
[2016-09-03] MEDS: methylPREDNISolone SOD SUCC 125 MG/2 ML VIAL IVP SCH ×3 (00:39→11:31)
[2016-09-03] MEDS: ALBUTEROL 3 ML DEYVIAL IH PRN ×2 (01:18→14:02)
[2016-09-03] MEDS: IPRATROPIUM/ALBUTEROL 3 ML DEYVIAL IH SCH ×4 (05:25→19:55)
[2016-09-03 05:39] LABS: % IMMATURE GRANULYOCYTES 1.4 % (0.0-1.1); ABSOLUTE IMMATURE GRANULOCYTES 0.29 10^3/uL (0.00-0.10); ADD DIFF? NO; ADD MORPH? NO; ADD SCAN? NO; ATYPICAL LYMPHOCYTE FLAG 0 (0-99); FRAGMENT RBC FLAG 0 (0-99); HEMATOCRIT 41.2 % (40.0-51.0); HEMOGLOBIN 13.2 g/dL (13.7-17.5); LEFT SHIFT FLG 20 (0-99); LIPEMIA HEMOLYSIS FLAG 80 (0-99); MEAN CELL HEMOGLOBIN 25.5 pg (27.9-34.1); MEAN CELL VOLUME 79.5 fL (81.5-99.8); MEAN PLATELET VOLUME 9.3 fL (8.7-11.7); PLATELET CLUMPS FLAG 10 (0-99); PLATELET COUNT 270 10^3/uL (150-400); RED BLOOD CELL COUNT 5.18 10^6/uL (4.40-6.38); RED CELL DISTRIBUTION WIDTH 15.3 % (11.5-15.2)
[2016-09-03 05:54] LABS: ANION GAP 10 mEq/L (8-16); CALCIUM 9.2 mg/dL (8.5-10.4); CARBON DIOXIDE 24 mEq/l (22-31); CHLORIDE 106 mEq/L (97-110); CREATININE 0.8 mg/dL (0.7-1.3); GLOMERULAR FILTRATION RATE > 60; GLUCOSE 138 mg/dL (70-100); POTASSIUM 4.6 mEq/L (3.5-5.2); SODIUM 140 mEq/L (134-144)
[2016-09-03] MEDS: ENOXAPARIN 40 MG/0.4 ML SYR SC SCH (08:13)
[2016-09-03] MEDS: GABAPENTIN 300 MG CAP PO SCH ×3 (08:13→20:09)
[2016-09-03] MEDS: FAMOTIDINE 20 MG TAB PO SCH ×2 (08:14→20:10)
[2016-09-03] MEDS: CITALOPRAM 20 MG TAB PO SCH (08:14)
[2016-09-03] MEDS: FUROSEMIDE 20 MG TAB PO SCH ×2 (08:14→14:53)
[2016-09-03] MEDS: guaiFENesin 600 MG TAB.ER PO SCH ×2 (08:14→20:10)
[2016-09-03] MEDS: buPROPion XL 150 MG TAB PO SCH (08:14)
[2016-09-03] MEDS: CETIRIZINE 10 MG TAB PO SCH (08:15)
[2016-09-03] MEDS: OXYCODONE/APAP 5/325 TAB PO PRN ×2 (08:25→20:10)
[2016-09-03] MEDS: BECLOMETHASONE QVAR 80 MDI IH SCH ×2 (08:27→19:55)
--- NOTE | 2016-09-03 08:28 | HOSPPROG ---
Hospitalist Progress Note Assessment/Plan: Patient is a 60-year-old male who has history of reactive airway disease as well as tracheal malacia with stenosis. He has presented the emergency room multiple times for ongoing shortness of breath. Today is my 1st encounter with the patient. Chart reviewed. #. Reactive airway disease/acute exacerbation - on IV steroids - chest x-ray does not show any acute signs of pneumonia -patient has underlying asthma #. history of tracheomalacia with associated stenosis - his post if further care with actual [facility] - will discuss with the patient when this is planned/ he has surgery scheduled on this next Thursday #. leukocytosis - most likely secondary to steroid use #. homelessness: suspect this is why he returns frequently #. Plan: dc iv steroids/ start oral steroids/CM to verify his doctor's appt on Thursday/ possibly arrange for him to be closer to [facility]. He is still requiring oxygen and will another midnight stay. Subjective: Juan C is c/o feeling ongoing shortness of breath. Objective: Vital Signs Temp Pulse Resp BP Pulse Ox 36.8 C 87 20 144/96 H 93 09/03/16 07:26 09/03/16 07:26 09/03/16 07:26 09/03/16 07:26 09/03/16 07:26 Laboratory Results 09/03/16 04:19 09/03/16 04:19 09/02/16 09/03/16 09/04/16 05:59 05:59 05:59 Intake Total 1830 Output Total 1850 Balance -20 - Physical Exam Constitutional: appears nourished, chronically ill appearing, obese Eyes: PERRL Ears, Nose, Mouth, Throat: hearing normal Cardiovascular: regular rate and rhythym Respiratory: rhonchi (scattered) Gastrointestinal: normoactive bowel sounds, soft, non-tender abdomen Skin: warm Musculoskeletal: full muscle strength Neurologic: AAOx3 Psychiatric: interacting appropriately, not anxious ICD10 Worksheet Patient Problems: Problems Problem Status Diagnosed Chronic obstructive pulmonary disease with acute exacerbation Acute Exacerbation of asthma Acute
[2016-09-03] MEDS ORDERED: NON-FORMULARY NEW DRUG (Citalopram Hydrobromide [Celexa] 40 MG) PO SCH (09:00)
[2016-09-03] MEDS ORDERED: CETIRIZINE 10 MG TAB PO ONE (16:27)
[2016-09-03] MEDS: FLUTICASONE NASAL 120 SPRAYS/16 GM MDI EACHNARE SCH (17:57)
[2016-09-04] MEDS: ACETYLCYSTEINE 10% 30 ML VIAL IH SCH ×3 (05:01→16:41)
[2016-09-04] MEDS: IPRATROPIUM/ALBUTEROL 3 ML DEYVIAL IH SCH ×3 (05:01→16:42)
[2016-09-04] MEDS: CITALOPRAM 20 MG TAB PO SCH (09:16)
[2016-09-04] MEDS: FAMOTIDINE 20 MG TAB PO SCH ×2 (09:16→21:02)
[2016-09-04] MEDS: buPROPion XL 150 MG TAB PO SCH (09:17)
[2016-09-04] MEDS: CETIRIZINE 10 MG TAB PO SCH (09:17)
[2016-09-04] MEDS: predniSONE 20 MG TAB PO SCH (09:17)
[2016-09-04] MEDS: GABAPENTIN 300 MG CAP PO SCH ×3 (09:17→21:01)
[2016-09-04] MEDS: ENOXAPARIN 40 MG/0.4 ML SYR SC SCH (09:17)
[2016-09-04] MEDS: FLUTICASONE NASAL 120 SPRAYS/16 GM MDI EACHNARE SCH (09:18)
[2016-09-04] MEDS: OXYCODONE/APAP 5/325 TAB PO PRN ×2 (09:25→21:02)
[2016-09-04] MEDS: guaiFENesin 600 MG TAB.ER PO SCH ×2 (09:25→21:01)
[2016-09-04] MEDS: FUROSEMIDE 20 MG TAB PO SCH ×2 (09:26→15:46)
--- NOTE | 2016-09-04 09:40 | HOSPPROG ---
Hospitalist Progress Note Assessment/Plan: Patient is a 60-year-old male who has history of reactive airway disease as well as tracheal malacia with stenosis. He has presented the emergency room multiple times for ongoing shortness of breath. #. Reactive airway disease/acute exacerbation - changed to oral stay steroids - chest x-ray does not show any acute signs of pneumonia -patient has underlying asthma #. history of tracheomalacia with associated stenosis - his post if further care with actual [facility] - will discuss with the patient when this is planned/ he has surgery scheduled on this next Thursday #. leukocytosis - most likely secondary to steroid use #. homelessness: suspect this is why he returns frequently #. Plan :will check oxygen levels on room air/ could possibly discharge later today. The patient would like to stay another night. Will re-evaluate him this afternoon. Subjective: marcella has a good appetite. Not complaining of shortness of breath. Objective: Vital Signs Temp Pulse Resp BP Pulse Ox 36.7 C 88 16 126/81 H 94 09/04/16 07:29 09/04/16 07:29 09/04/16 07:29 09/04/16 07:29 09/04/16 07:29 - Physical Exam Constitutional: no apparent distress, appears nourished, obese Eyes: PERRL Ears, Nose, Mouth, Throat: hearing normal Cardiovascular: regular rate and rhythym, edema ( lower extremity edema) Respiratory: no respiratory distress, no rales or rhonchi, clear to auscultation , No expiratory wheeze ( Her lung sounds are much improved compared to yesterday's evaluation) Gastrointestinal: normoactive bowel sounds Skin: warm Musculoskeletal: full muscle strength, no muscle tenderness Neurologic: AAOx3 Psychiatric: interacting appropriately, not anxious ICD10 Worksheet Patient Problems: Problems Problem Status Diagnosed Chronic obstructive pulmonary disease with acute exacerbation Acute Exacerbation of asthma Acute
[2016-09-04] MEDS: BECLOMETHASONE QVAR 80 MDI IH SCH (10:28)
[2016-09-04 12:45] LABS: ADD DIFF? YES; ADD MORPH? NO; ADD SCAN? NO; ATYPICAL LYMPHOCYTE FLAG 0 (0-99); FRAGMENT RBC FLAG 0 (0-99); HEMATOCRIT 42.3 % (40.0-51.0); HEMOGLOBIN 13.6 g/dL (13.7-17.5); LEFT SHIFT FLG 20 (0-99); LIPEMIA HEMOLYSIS FLAG 80 (0-99); MEAN CELL HEMOGLOBIN CONCENTR. 32.2 g/dL (32.4-36.7); MEAN CELL VOLUME 80.9 fL (81.5-99.8); PLATELET CLUMPS FLAG 0 (0-99); PLATELET COUNT 287 10^3/uL (150-400); RED BLOOD CELL COUNT 5.23 10^6/uL (4.40-6.38); RED CELL DISTRIBUTION WIDTH 15.5 % (11.5-15.2)
[2016-09-04 13:17] LABS: PLATELET ESTIMATE ADEQUATE (ADEQ)
[2016-09-05] MEDS: ACETYLCYSTEINE 10% 30 ML VIAL IH SCH ×3 (04:04→10:42)
[2016-09-05] MEDS: IPRATROPIUM/ALBUTEROL 3 ML DEYVIAL IH SCH ×3 (04:05→10:42)
[2016-09-05] MEDS: BECLOMETHASONE QVAR 80 MDI IH SCH ×2 (04:05→04:50)
[2016-09-05] MEDS: OXYCODONE/APAP 5/325 TAB PO PRN (06:19)
[2016-09-05 07:10] VITALS: BP 112/88; TEMP 99
[2016-09-05] MEDS: FUROSEMIDE 20 MG TAB PO SCH (08:05)
[2016-09-05] MEDS: ENOXAPARIN 40 MG/0.4 ML SYR SC SCH (08:05)
[2016-09-05] MEDS: predniSONE 20 MG TAB PO SCH (08:05)
[2016-09-05] MEDS: guaiFENesin 600 MG TAB.ER PO SCH (08:05)
[2016-09-05] MEDS: buPROPion XL 150 MG TAB PO SCH (08:05)
[2016-09-05] MEDS: CETIRIZINE 10 MG TAB PO SCH (08:06)
[2016-09-05] MEDS: GABAPENTIN 300 MG CAP PO SCH (08:06)
[2016-09-05] MEDS: CITALOPRAM 20 MG TAB PO SCH (08:06)
[2016-09-05] MEDS: FLUTICASONE NASAL 120 SPRAYS/16 GM MDI EACHNARE SCH (08:07)
--- NOTE | 2016-09-05 08:47 | HOSPPROG ---
Hospitalist Progress Note Assessment/Plan: Patient is a 60-year-old male who has history of reactive airway disease as well as tracheal malacia with stenosis. He has presented the emergency room multiple times for ongoing shortness of breath. #. Reactive airway disease/acute exacerbation - changed to oral stay steroids - chest x-ray does not show any acute signs of pneumonia - patient has underlying asthma #. history of tracheomalacia with associated stenosis - his post if further care with actual [facility] - surgery this coming Thursday #. leukocytosis - most likely secondary to steroid use #. homelessness: suspect this is why he returns frequently #. Plan :Juan C and I agreed last evening about being dc today/ he's prefers to stay in the hospital/ has no specific complaints. Subjective: Juan C has no complaints. Objective: Vital Signs Temp Pulse Resp BP Pulse Ox 37.2 C 88 18 112/88 H 91 L 09/05/16 07:09 09/05/16 07:09 09/05/16 07:09 09/05/16 07:09 09/05/16 07:09 Laboratory Results 09/04/16 12:35 09/04/16 09/05/16 09/06/16 05:59 05:59 05:59 Intake Total 1120 Output Total 1450 Balance -330 - Physical Exam Constitutional: appears nourished, not in pain, obese Eyes: PERRL Ears, Nose, Mouth, Throat: hearing normal Cardiovascular: regular rate and rhythym Respiratory: no respiratory distress (Breath sounds clear throughout. Much improved since 2 days ago) Skin: warm Musculoskeletal: full muscle strength Neurologic: AAOx3 Psychiatric: interacting appropriately ICD10 Worksheet Patient Problems: Problems Problem Status Diagnosed Chronic obstructive pulmonary disease with acute exacerbation Acute Exacerbation of asthma Acute
[2016-09-05 10:57] VITALS: PULSE 98; RESP 16; O2SAT 94
[2016-09-05] MEDS: FAMOTIDINE 20 MG TAB PO SCH (10:57)
--- NOTE | 2016-09-06 02:15 | GDS ---
[f rep st] DISCHARGE SUMMARY DISCHARGE DIAGNOSES: 1. Reactive airway disease/acute exacerbation. 2. History of tracheomalacia with associated stenosis. 3. Leukocytosis. 4. Homelessness. BRIEF HISTORY: The patient is a 60-year-old male who has a past medical history of reactive airway disease as well as tracheomalacia and stenosis. He has been admitted and discharged multiple times over the past year. He comes back stating that he was still very short of breath and he feels that he did not feel quite ready to go home. He has a scheduled followup at [facility] on Thursday for his tracheomalacia. The plan is to have stenting performed. Case management has verified this and this is scheduled. HOSPITAL COURSE PER PROBLEM: 1. Reactive airway disease. He was treated with IV steroids the 1st day and the 2nd day, he was started on prednisone. He has underlying asthma. I reviewed his chest x-ray. He has no signs or symptoms of pneumonia. Today on discharge his oxygen levels are stable on room air. His lung sounds are clear. 2. History of tracheomalacia with associated stenosis. He is going to get care this Thursday and have surgery. He has been working with [facility]. 3. Leukocytosis secondary to steroid use. 4. Homelessness. I suspect this is why the patient returns frequently to the ER. He cannot be in the nursing home until the evenings and he gets concerned about being outside. PENDING LABS AND TESTS: None. CONDITION AT DISCHARGE: Stable. VITAL SIGNS: Blood pressure is 112/88, heart rate is 98, respiratory rate is 16 , O2 saturation on room air 94%. Temperature is 37.2 Celsius. MEDICATIONS AT DISCHARGE: Please see the EMR. DISCHARGE INSTRUCTIONS: 1. Reviewed with the patient that he likely has chronic shortness of breath. Unless he has fever and chills and has low oxygen levels, he likely does not need to be in a hospital. 2. To get care at [facility] as planned on Thursday. Suspect this will give him marked good improvement. 3. If he develops fevers or chills, to return to the emergency room. Greater than 30 minutes discharging and coordinating care plus giving him prescriptions for his nebulizer treatments. /[id number]/MODL MTDD
== END 2016-09-05 14:04 | disposition home or self-care (01) | DRG 203 ==
LOC: EDUNIT# → F3E 10:50 → OBSVTOIN 09-03 08:25
PROVIDERS: ADMIT Internal Medicine; ATTEND Internal Medicine
DX: J45.901 Unspecified asthma with (acute) exacerbation (principal); J39.8 Other specified diseases of upper respiratory tract; D72.829 Elevated white blood cell count, unspecified; Z59.0 Homelessness
CPT/HCPCS: G0378; J1650

== ENCOUNTER 2016-09-27 17:47 | Emergency (ER) | payer MEDICAID ==
[2016-09-27 17:58] VITALS: TEMP 97.9
--- NOTE | 2016-09-27 17:59 | EDPHY ---
HPI/HX/ROS/PE/MDM Narrative: CHIEF COMPLAINT: Wheezing, cough HPI: The patient is a homeless 60 y/o male arriving via EMS complaining of shortness of breath onset this afternoon. He has a history of tracheobronchial malacia with frequent wheezing and coughing. He was admitted for 4 days on for a similar complaint, which was his second admission last month. EMS administered duo neb en route with some improvement. The patient denies fever, vomiting, acute pain. REVIEW OF SYSTEMS: Aside from elements discussed in the HPI, a comprehensive 10-point review of systems was reviewed and is negative. PMH: tracheobronchial malacia, previous tracheal ? stent, reactive airways disease, depression, chronic pain SOCIAL HISTORY: Nonsmoker, homeless PHYSICAL EXAM: General:Patient is alert, in no acute distress. ENT:Eyes are normal to inspection. ENT inspection normal. Neck: Normal inspection. Full range of motion. Respiratory: Actively coughing. Wheezing bilaterally with good air movement. Cardiovascular: Regular rate and rhythm. Strong peripheral pulses. Normal cap refill. Abdomen:The abdomen is nontender to palpation. There are no peritoneal signs. There are normal bowel sounds. Back: Normal to inspection. No tenderness to palpation. Skin: Normal color. No rash. Warm and dry. Extremities: Normal appearance. Full range of motion. Neuro: Oriented x3. Normal motor function. Normal sensory function. ED Course: Chest x-ray ordered and heliox administered. Study: Chest x-ray Indication: Dyspnea Results: Chest x-ray was obtained. The results of the study are: Resolution of some left basilar subsegmental atelectasis since September 02, 2016; persistent hypoventilatory changes with posttraumatic features of the left lateral rib cage. The study was read by the radiologist, Dr. Palmer. I viewed the images myself on the PACS system. 2015: Patient is ambulatory while maintaining SpO2 in 92% range. He will be discharged home with referral to PCP for follow up. Return precautions given. MDM: This patient has a history of known tracheomalacia and presents with what sounds like typical cough and wheezing. He is not hypoxic on room air at rest. His chest x-ray does not show evidence of pneumonia. He does not have fever by history or on exam. Patient was treated with continuous albuterol nebulizer as well as prednisone. On re-evaluation at 8:15 p.m., the patient continues to complain of cough but is able to walk around the emergency department without difficulty and clearly able to eat and watch TV comfortably as well. I discussed our workup with the patient and explained him that I do not think he needs to be admitted to the hospital at this time. He responded by saying Mistake! I'll just come back tomorrow." It appears the patient is essentially threatening to continue to return to the emergency department in order to be admitted. Review of his records indicates that he has been admitted to the hospital approximately 6-8 times over the last 2 months with the same symptoms. Given this history as well as the time of his presentation and homeless status , I suspect at least some portion of his presentation is focused on secondary gain. I do not see objective criteria for admitting him to the hospital. - Data Points Medications Given: Discontinued Medications Prednisone (Prednisone) 60 mg PO EDNOW ONE Stop: 09/27/16 18:52 Last Admin: 09/27/16 19:10 Dose: 60 mg General Initial Vital Signs: Initial Vital Signs Temperature (C) 36.6 C 09/27/16 17:47 Heart Rate 100 09/27/16 17:47 Respiratory Rate 24 H 09/27/16 17:47 Blood Pressure 142/91 H 09/27/16 17:47 O2 Sat (%) 99 09/27/16 17:47 O2 Delivery Mode Room Air O2 (L/minute) 6 Allergies/Adverse Reactions: erythromycin base Allergy (Verified 08/12/16 07:48) UPSET STOMACH Home Medications: Medication Instructions Recorded Tiotropium Inhaler [Spiriva 18 mcg IH DAILY 08/17/16 Handihaler] buPROPion XL [Wellbutrin 150mg XL] 300 mg PO DAILY 08/17/16 Beclomethasone Qvar 80 [Qvar 80 1 puffs IH BID 08/27/16 (*)] Cetirizine [ZyrTEC 10 mg (*)] 10 mg PO DAILY 08/27/16 Citalopram Hydrobromide [Celexa] 40 mg PO DAILY 08/27/16 Gabapentin [Neurontin 300 MG (*)] 300 mg PO TID 08/27/16 Ipratropium [Atrovent Neb (*)] 0.5 mg IH Q8 PRN 08/27/16 Mometasone/Formoterol [Dulera 200 1 puffs IH BID 08/27/16 Mcg/5 Mcg Inhaler] Ranitidine HCl [Zantac] 300 mg PO BID 08/27/16 guaiFENesin [Mucinex 600 MG (*)] 600 mg PO BID 08/27/16 oxyCODONE/APAP 5/325 [Percocet 1 tab PO Q4HRS PRN #14 tab 08/31/16 5/325 (*)] Furosemide [Lasix 20 MG (*)] 20 mg PO BID 09/02/16 Acetaminophen [Tylenol 325mg (*)] 650 mg PO Q4HRS PRN #0 tab 09/05/16 Albuterol [Proventil Inhaler HFA 2 puffs IH DAILY PRN #1 mdi 09/05/16 (*)] Albuterol [Proventil Neb] 3 ml IH QID PRN #0 deyvial 09/05/16 predniSONE 40 mg PO DAILY #11 tablet 09/05/16 Departure - Departure Disposition: Home, Routine, Self-Care Clinical Impression: Dyspnea Qualifiers: Dyspnea type: shortness of breath Qualifier Code: (R06.02) Shortness of breath Instructions: Dyspnea (ED) Additional Instructions: Follow up with your primary care provider on Thursday. Referrals: [facility] [Outside] - As per Instructions Report Scribed for: Dain Cruz Report Scribed by: Ninfa Shea Date of Report: 09/27/16 Time of Report: 17:42 Physician Review and Approval Statement: Portions of this note were transcribed by an ED scribe. I personally performed the history, physical exam, and medical decision making; and confirm the accuracy of the information in the transcribed note.
[2016-09-27] MEDS ORDERED: ALBUTEROL 3 ML DEYVIAL ONE (18:05)
--- NOTE | 2016-09-27 18:34 | DX ---
AP Upright and Lateral Views of the Chest, at 5:52 p.m. Clinical History: 60-year-old male in the ED with a history of tracheobronchomalacia and dyspnea. Comparison Study: Chest, dated September 02, 2016. Findings: Telemetry monitoring lead lines are noted. There are mild hypoventilatory features. As on t he previous study, there are numerous old healed fracture deformities associated with the left rib ca ge. The inferolateral left ninth rib is incompletely-fused and remains mildly displaced. The cardiac and mediastinal silhouette is normal in size (given the AP hypoventilatory features). The pulmonary v asculature is normal. There is no new focal infiltrate, pleural effusion, peripheral interstitial ariella ma, or pneumothorax. Previously-noted left basilar subsegmental atelectasis has resolved. Impression: Resolution of some left basilar subsegmental atelectasis since September 02, 2016; persiste nt hypoventilatory changes with posttraumatic features of the left lateral rib cage.
[2016-09-27] MEDS ORDERED: predniSONE 20 MG TAB PO ONE (18:51)
[2016-09-27 20:02] VITALS: RESP 18
[2016-09-27 20:47] VITALS: BP 123/88; PULSE 88; O2SAT 95
== END 2016-09-27 20:46 | disposition home or self-care (01) ==
LOC: EDUNIT#
DX: R06.02 Shortness of breath (principal); J45.909 Unspecified asthma, uncomplicated